=== PATIENT | female | born 1980 | race Caucasian/White ===

== ENCOUNTER 2016-08-11 17:34 | Emergency (ER) | payer BC, MEDICAID ==
[2016-08-11 17:56] VITALS: BP 116/83
--- NOTE | 2016-08-11 18:32 | UC ---
Cardiac HPI - HPI Summary HPI Summary: Was sick with viral URI sx a couple weeks ago and had some L anterior lower chest wall pain. Has been feeling better, but then this morning started choking on food and felt pop and sudden pain in L anterior chest. Has been very uncomfortable since. Denies SOB or hx of pneumothorax - History of Current Complaint Chief Complaint: UCUpperExtremity Stated Complaint: CHEST & RIB PAIN Time Seen by Provider: 08/11/16 18:17 Hx Obtained From: Patient Onset/Duration: Sudden Onset Timing: Constant Initial Severity: Severe Current Severity: Moderate Chest Pain Location: Left Anterior Aggravating: Position, Deep Breaths Alleviating: Rest Associated Signs & Symptoms: Negative: Headaches, Numbness, Tingling, Weakness, Dizziness, SOB, Swelling, Syncope, Fever, Diaphoresis, Nausea/Vomiting, Palpitations, Hemoptysis, Back Pain, Abdominal Pain, Calf Pain/Swelling - Allergy/Home Medications Allergies/Adverse Reactions: Allergies Allergy/AdvReac Type Severity Reaction Status Date / Time No Known Allergies Allergy Verified 10/12/15 22:14 Home Medications: Home Medications Norelgestromin-Ethinyl Estradi [Xulane 150-35 Mcg/24Hr] 1 dis TD 08/11/16 [ History] PMH/Surg Hx/FS Hx/Imm Hx Previously Healthy: Yes Endocrine History Of: Denies: Diabetes, Thyroid Disease Cardiovascular History Of: Denies: Cardiac Disorders, Hypertension Respiratory History Of: Denies: COPD, Asthma GI/ History Of: Denies: Ulcer - Surgical History Surgical History: Yes Surgery Procedure, Year, and Place: T&A - Family History Known Family History: Positive: None Negative: Cardiac Disease, Hypertension, Diabetes - Social History Occupation: Employed Full-time Lives: With Family Alcohol Use: Occasionally Substance Use Type: None Smoking Status (MU): Never Smoked Tobacco - Immunization History Most Recent Influenza Vaccination: utd Most Recent Tetanus Shot: utd Most Recent Pneumonia Vaccination: none Review of Systems Constitutional: Negative Skin: Negative Eyes: Negative ENT: Negative Respiratory: Negative Cardiovascular: Chest Pain Gastrointestinal: Negative Genitourinary: Negative Motor: Negative Neurovascular: Negative Musculoskeletal: Negative Neurological: Negative Psychological: Negative All Other Systems Reviewed And Are Negative: Yes Physical Exam Triage Information Reviewed: Yes Appearance: Well-Appearing, No Pain Distress, Well-Nourished Vital Signs: Initial Vital Signs Temp 98.7 F 08/11/16 17:47 Pulse 69 08/11/16 17:47 Resp 18 08/11/16 17:47 BP 116/83 08/11/16 17:47 Pulse Ox 99 08/11/16 17:47 Vital Signs Reviewed: Yes Eye Exam: Normal Eyes: Positive: Conjunctiva Clear ENT Exam: Normal ENT: Positive: Normal ENT inspection, Hearing grossly normal, Pharynx normal, TMs normal Dental Exam: Normal Neck exam: Normal Neck: Positive: Supple, Nontender, No Lymphadenopathy Respiratory: Positive: Normal breath sounds, No respiratory distress, No accessory muscle use. Negative: Chest non-tender - L anterior tenderness Cardiovascular Exam: Normal Cardiovascular: Positive: RRR, No Murmur Musculoskeletal Exam: Other - L anterior chest wall pain Musculoskeletal: Positive: Strength Intact, ROM Intact Neurological Exam: Normal Psychological Exam: Normal Skin Exam: Normal - Clinical Impression Provider Diagnoses: L chest wall pain Discharge - Discharge Plan Condition: Stable Disposition: HOME Patient Education Materials: Chest Wall Pain (ED) Referrals: Hope Serrano MD [Primary Care Provider] - If Needed Additional Instructions: Today and tomorrow you should use ice for pain relief; after that you can try warm packs. If you have trouble breathing, fever, or any significant worsening, please come back or see your primary care provider.
--- NOTE | 2016-08-11 18:47 | RAD ---
HISTORY: Cough, chest pain COMPARISONS: None VIEWS: 5 frontal dual-energy views of the chest, frontal expiration views of the chest, lateral views of the chest FINDINGS: CARDIOMEDIASTINAL SILHOUETTE: The cardiomediastinal silhouette is normal. CHRISTO: The christo are normal. PLEURA: The costophrenic angles are sharp. No pleural abnormalities are noted. There is no appreciable pneumothorax. LUNG PARENCHYMA: The lungs are clear. ABDOMEN: The upper abdomen is clear. There is no subphrenic gas. BONES AND SOFT TISSUES: No bone or soft tissue abnormalities are noted. OTHER: None. IMPRESSION: NO ACTIVE CARDIOPULMONARY DISEASE.
== END 2016-08-11 19:05 | disposition home or self-care (01) ==
LOC: UCEAST 17:34
DX: R07.89 Other chest pain (principal); R05 Cough
CPT/HCPCS: 71020; 99212; G0463

== ENCOUNTER 2016-11-16 13:13 | Emergency (ER) | payer BC ==
[2016-11-16 13:23] VITALS: BP 107/65
--- NOTE | 2016-11-16 13:30 | UC ---
Hand/Wrist HPI - HPI Summary HPI Summary: While on climbing wall yesterday was pulling up and felt crunching painful sensation in L 4th finger at DIP. Now having difficulty flexing finger. - History Of Current Complaint Chief Complaint: UCUpperExtremity Stated Complaint: FINGER COMPLAINT Time Seen by Provider: 11/16/16 13:20 Hx Obtained From: Patient Hx Last Menstrual Period: 10/26/16 ?: No Onset/Duration: Sudden Onset Severity Initially: Moderate Severity Currently: Mild Character Of Pain: Aching Aggravating Factor(s): Movement, Flexion, Extension Alleviating: Rest Associated Signs And Symptoms: Positive: Negative Related History: Dominant Hand Right - Allergies/Home Medications Allergies/Adverse Reactions: Allergies Allergy/AdvReac Type Severity Reaction Status Date / Time No Known Allergies Allergy Verified 10/12/15 22:14 PMH/Surg Hx/FS Hx/Imm Hx Endocrine History Of: Denies: Diabetes, Thyroid Disease Cardiovascular History Of: Denies: Cardiac Disorders, Hypertension Respiratory History Of: Denies: COPD, Asthma GI/ History Of: Denies: Ulcer - Surgical History Surgical History: Yes Surgery Procedure, Year, and Place: T&A - Family History Known Family History: Positive: None Negative: Cardiac Disease, Hypertension, Diabetes - Social History Occupation: Employed Full-time - [employer] Alcohol Use: Occasionally Substance Use Type: None Smoking Status (MU): Never Smoked Tobacco - Immunization History Most Recent Influenza Vaccination: utd Most Recent Tetanus Shot: utd Most Recent Pneumonia Vaccination: none Review of Systems Constitutional: Negative Skin: Negative Eyes: Negative ENT: Negative Respiratory: Negative Cardiovascular: Negative Gastrointestinal: Negative Genitourinary: Negative Motor: Negative Neurovascular: Negative Musculoskeletal: Arthralgia, Decreased ROM Neurological: Negative Psychological: Negative All Other Systems Reviewed And Are Negative: Yes Physical Exam Triage Information Reviewed: Yes Appearance: Well-Appearing, No Pain Distress, Well-Nourished Vital Signs: Initial Vital Signs Temp 98.3 F 11/16/16 13:20 Pulse 75 11/16/16 13:20 Resp 18 11/16/16 13:20 BP 107/65 11/16/16 13:20 Pulse Ox 100 11/16/16 13:20 Vital Signs Reviewed: Yes Eye Exam: Normal Eyes: Positive: Conjunctiva Clear ENT Exam: Normal ENT: Positive: Normal ENT inspection, Hearing grossly normal, Pharynx normal, TMs normal Dental Exam: Normal Neck exam: Normal Neck: Positive: Supple, Nontender, No Lymphadenopathy Respiratory Exam: Normal Respiratory: Positive: Chest non-tender, Lungs clear, Normal breath sounds, No respiratory distress, No accessory muscle use Cardiovascular Exam: Normal Cardiovascular: Positive: RRR, No Murmur Musculoskeletal Exam: Other - tender at L 4th finger DIP Musculoskeletal: Positive: ROM Limited @ - R 4th finger DIP. Full extension intact, pain with limited flexion Neurological Exam: Normal Neurological: Positive: Alert Psychological Exam: Normal Skin Exam: Normal Hand/Wrist Course/Dx - Differential Dx/Diagnosis Provider Diagnoses: L 4th finger sprain Discharge - Discharge Plan Condition: Stable Disposition: HOME Patient Education Materials: Finger Sprain (ED) Referrals: Hope Serrano MD [Primary Care Provider] - Ciro Vogt MD [Medical Doctor] - If Needed Additional Instructions: As we discussed, I expect your finger to fully recover in a week or two with short-term rest and protection. If your finger starts to change shape, or if you are not regaining full function after the first few days of stiffness, please contact the orthopedist listed here for a follow-up appointment.
--- NOTE | 2016-11-16 13:46 | RAD ---
INDICATION: Left ring finger trauma. TECHNIQUE: 3 views of the left ring finger were obtained. FINDINGS: The bones are normal alignment. No fracture is seen. Joint spaces appear maintained. IMPRESSION: NO EVIDENCE FOR FRACTURE.
== END 2016-11-16 14:09 | disposition home or self-care (01) ==
LOC: UCEAST 13:13
DX: S63.615A Unspecified sprain of left ring finger, initial encounter (principal); X50.9XXA Other and unspecified overexertion or strenuous movements or postures, initial encounter; Y93.31 Activity, mountain climbing, rock climbing and wall climbing; Y92.9 Unspecified place or not applicable
CPT/HCPCS: 73140; 99211; G0463

== ENCOUNTER 2018-01-10 09:07 | Emergency (ER) | payer BC ==
[2018-01-10] MEDS ORDERED: NS 0.9% 1000 ML* 1,000 ML IV ONE (09:25)
[2018-01-10] MEDS ORDERED: Ketorolac INJ* 30 MG/ML 1 ML VIAL IV PUSH ONE (09:25)
[2018-01-10] MEDS ORDERED: Ondansetron ODT TAB* 4 MG PO ONE (09:25)
[2018-01-10 09:42] LABS: ABS Basophils 0 10^3/ul (0-0.2); ABS Eosinophils 0.1 10^3/ul (0-0.6); ABS Lymphocytes 1.2 10^3/ul (1.0-4.8); ABS Monocytes 0.2 10^3/ul (0-0.8); ABS Neutrophils 2.1 10^3/ul (1.5-7.7); ABS Nucleated RBC 0 10^3/ul; Eosinophil % 2.2 % (0-6); Hematocrit 33 % (35-47); Hemoglobin 11.6 g/dl (12.0-16.0); Lymphocyte % 34.1 % (25-47); Mean Corpuscular HGB Conc 35 g/dl (31-36); Mean Corpuscular Hemoglobin 32 pg (27-31); Mean Corpuscular Volume 91 fL (80-97); Mean Platelet Volume 8.1 um3 (7.4-10.4); Nucleated Red Blood Cells % 0.1; Platelet Count 259 10^3/ul (150-450); Red Blood Count 3.62 10^6/ul (4.00-5.40); Red Cell Distribution Width 12 % (10.5-15); White Blood Count 3.6 10^3/ul (3.5-10.8)
--- NOTE | 2018-01-10 09:51 | ED ---
Abdominal Pain/Female - HPI Summary HPI Summary: Pt. is a 37 y.o female who presents to the ER for lower abd. pain and vomiting x 4 x 1 day. Pt. states that she was hiking yesterday and today noticed bilateral hip pain. She states that pain than progressed across her lower abd. Pain was sharp and cramping in nature. She states she then developed chills and vomited 4 times. No associated symptoms of diarrhea, urinary symptoms, URI sx. No significant past medical history. Symptoms are moderate in severity. Movement makes symptoms worse. Rest makes symptoms better. - History of Current Complaint Chief Complaint: EDAbdPain Stated Complaint: ABD PAIN Time Seen by Provider: 01/10/18 09:15 Hx Obtained From: Patient Hx Last Menstrual Period: 10/26/16 Pain Intensity: 7 Allergies/Adverse Reactions: Allergies Allergy/AdvReac Type Severity Reaction Status Date / Time No Known Allergies Allergy Verified 01/10/18 09:13 PMH/Surg Hx/FS Hx/Imm Hx Previously Healthy: Yes Endocrine/Hematology History: Denies: Hx Diabetes, Hx Thyroid Disease Cardiovascular History: Denies: Hx Hypertension Respiratory History: Denies: Hx Asthma, Hx Chronic Obstructive Pulmonary Disease (COPD), Other Respiratory Problems/Disorders GI History: Denies: Hx Ulcer - Surgical History Surgery Procedure, Year, and Place: T&A Infectious Disease History: No Infectious Disease History: Denies: Hx Clostridium Difficile, Hx Hepatitis, Hx Human Immunodeficiency Virus (HIV), Hx of Known/Suspected MRSA, Hx Shingles, Hx Tuberculosis, Hx Known/ Suspected VRE, History Other Infectious Disease, Traveled Outside the in Last 30 Days - Family History Known Family History: Positive: None Negative: Cardiac Disease, Hypertension, Diabetes - Social History Occupation: Employed Full-time Lives: With Family Alcohol Use: Occasionally Substance Use Type: Reports: None Hx Tobacco Use: No Smoking Status (MU): Never Smoked Tobacco Review of Systems Positive: Chills Eyes: Negative ENT: Negative Cardiovascular: Negative Respiratory: Negative Positive: Abdominal Pain, Vomiting, Nausea. Negative: Diarrhea Genitourinary: Negative Negative: burning, dysuria, flank pain Positive: Other - Hip pain Negative: Rash Neurological: Negative All Other Systems Reviewed And Are Negative: Yes Physical Exam Triage Information Reviewed: Yes Vital Signs On Initial Exam: Initial Vitals Temp Pulse Resp BP Pulse Ox 98.3 F 56 14 107/53 100 01/10/18 09:11 01/10/18 09:11 01/10/18 09:11 01/10/18 09:11 01/10/18 09:11 Vital Signs Reviewed: Yes Appearance: Positive: Well-Appearing - Pt. lying in bed in NAD. Family present. Skin: Positive: Warm, Dry Head/Face: Positive: Normal Head/Face Inspection Eyes: Positive: Normal Neck: Positive: Supple Abdomen Description: Positive: Other: - Abd. is soft with mild tenderness to the left lower quadrant. No rebound tenderness or guarding. Mild left CVA tenderness. Neurological: Positive: Normal, CN Intact II-III Psychiatric: Positive: Affect/Mood Appropriate Diagnostics - Vital Signs Vital Signs Temp Pulse Resp BP Pulse Ox 01/10/18 09:11 98.3 F 56 14 107/53 100 - Laboratory Lab Results: Lab Results 01/10/18 Range/Units 09:28 WBC 3.6 (3.5-10.8) 10^3/ul RBC 3.62 L (4.00-5.40) 10^6/ul Hgb 11.6 L (12.0-16.0) g/dl Hct 33 L (35-47) % MCV 91 (80-97) fL MCH 32 H (27-31) pg MCHC 35 (31-36) g/dl RDW 12 (10.5-15) % Plt Count 259 (150-450) 10^3/ul MPV 8.1 (7.4-10.4) um3 Neut % (Auto) 56.9 (38-83) % Lymph % (Auto) 34.1 (25-47) % Pepin % (Auto) 6.5 (0-7) % Eos % (Auto) 2.2 (0-6) % Baso % (Auto) 0.3 (0-2) % Absolute Neuts (auto) 2.1 (1.5-7.7) 10^3/ul Absolute Lymphs (auto) 1.2 (1.0-4.8) 10^3/ul Absolute Monos (auto) 0.2 (0-0.8) 10^3/ul Absolute Eos (auto) 0.1 (0-0.6) 10^3/ul Absolute Basos (auto) 0 (0-0.2) 10^3/ul Absolute Nucleated RBC 0 10^3/ul Nucleated RBC % 0.1 Result Diagrams: 01/10/18 09:28 01/10/18 09:28 Lab Statement: Any lab studies that have been ordered have been reviewed, and results considered in the medical decision making process. Abdominal Pain Fem Course/Dx - Course Course Of Treatment: Pt. presenting for N/V and lower abd. pain. Majority of her pain is suprapubic and LLQ. Afebrile with stable VS. Will obtain labs and u/ a for further eval. Will give IV fluids, zofran and toradol. CBC and CMP are unremarkable. Negative . U/A shows ketones, RBCs, and bacteria. On re- exam pt. states her pain has greatly improved but is still mild. Results discussed. Concerned pt. is passing a renal calculus. Will obtain noncontrast CT. CT scan is negative for acute findings, reading per radiology. Results discussed. Pt. may have passed a small stone given acute onset pain, vomiting and blood in urine. Also could be started with an early UTI. Will cover with keflex. Zofran rx as well. Advised pt. to increase fluids. Close f.u with PCP. NSAIDS for pain as directed. To return to ER for increased pain, vomiting, fever , or if concerned. Pt. and family understand and agree with plan. - Diagnoses Differential Diagnosis: Positive: Diverticulitis, Ectopic , Ovarian Cyst, , Renal Colic Provider Diagnoses: Suspected UTI Discharge - Sign-Out/Discharge Documenting (check all that apply): Discharge/Admit/Transfer - Discharge Plan Condition: Good Disposition: HOME Prescriptions: Cephalexin CAP* [Keflex CAP*] 500 mg PO BID #20 cap Ondansetron TAB* [Zofran 4 MG Tab*] 4 mg PO Q6H PRN #12 tab PRN Reason: Nausea Patient Education Materials: Kidney Stones (ED), Urinary Tract Infection in Women (ED) Referrals: Hope Serrano MD [Primary Care Provider] - Additional Instructions: Call PCP to schedule a follow up appointment Medication as directed Increase fluids NSAIDS for pain as directed Return to ER for uncontrollable vomiting, fever, increased pain or if concerned - Billing Disposition and Condition Condition: GOOD Disposition: Home
[2018-01-10 10:01] LABS: EGFR Non-African American 99.6 (>60)
[2018-01-10 11:09] LABS: Urine Appearance Cloudy; Urine Blood Negative (Negative); Urine Color Yellow; Urine Ketones 1+ (Negative); Urine Protein 1+(30 mg/dL) (Negative); Urine Specific Gravity 1.024 (1.010-1.030); Urine Urobilinogen Negative (Negative)
--- NOTE | 2018-01-10 11:50 | RAD ---
CLINICAL HISTORY: flank pain, left COMPARISON: None TECHNIQUE: Multiple contiguous axial CT scans were obtained of the abdomen and pelvis, without intravenous contrast enhancement. Coronal and sagittal multiplanar reformations are submitted for review. Oral contrast was not administered. FINDINGS: The study is limited by the lack of intravenous contrast. This limits evaluation of the solid organs and vasculature. LUNG BASES: The lung bases are clear. LIVER: The liver is normal in shape, size, contour, and attenuation. BILE DUCTS: There is no intrahepatic or extrahepatic biliary dilatation. GALLBLADDER: The gallbladder is normal, without pericholecystic inflammatory change. PANCREAS: The pancreas is normal, without mass or ductal dilatation. SPLEEN: Normal in size and appearance. UPPER GI TRACT: Evaluation of the gastrointestinal tract is limited by incomplete gastric distention. The upper GI tract is unremarkable. SMALL BOWEL AND MESENTERY: The small bowel is normal in contour, course, and caliber. There is no obstruction or dilatation. COLON: The colon is normal in contour, course, caliber. There is no pericolonic inflammatory change. ADRENALS: Normal bilaterally. KIDNEYS: The kidneys are normal in shape, size, contour, and axis. There is no hydronephrosis or nephrolithiasis. BLADDER: The bladder is incompletely distended and is not well evaluated. PELVIC ORGANS: The uterus and adnexa are grossly normal for technique. AORTA: The aorta is normal. IVC: Unremarkable LYMPH NODES: There is no lymphadenopathy by size criteria. ABDOMINAL WALL: There is no evidence for abdominal wall hernia. BONES AND SOFT TISSUES: Unremarkable OTHER: None IMPRESSION: NO APPRECIABLE HYDRONEPHROSIS OR NEPHROLITHIASIS. NO ACUTE NONCONTRAST CT PATHOLOGY OF THE VISUALIZED ABDOMEN OR PELVIS.
[2018-01-10 12:23] VITALS: BP 110/67
== END 2018-01-10 12:22 | disposition home or self-care (01) ==
LOC: ED 09:07
DX: R10.32 Left lower quadrant pain (principal); R11.2 Nausea with vomiting, unspecified; R10.9 Unspecified abdominal pain; M25.559 Pain in unspecified hip
CPT/HCPCS: 36415; 74176; 80053; 81003; 81015; 83690; 84702; 85025; 87086; 96361; 96374; 99283; A9270-GY; J1885